=== PATIENT | male | born 1940 | race Caucasian/White ===

== ENCOUNTER 2016-08-06 07:21 | Day surgery (SDC) | payer MEDICARE ==
[2016-08-04 15:14] VITALS: BMI 29.9
[~2016-08-06 07:21] MED LIST: LACTATED RINGERS 1,000 ML IV SCH; LIDOCAINE 1% 20 ML VIAL (10MG/ML) FOR IV START INTRADERMA PRN
[2016-08-06 08:00] VITALS: RESP 16; TEMP 97
[2016-08-06 08:03] LABS: Glucose,Whole Blood 149 mg/dL (75-99)
[2016-08-06] MEDS ORDERED: PROPOFOL 10 MG/ML 20 ML VIAL IV ONE (08:24)
--- NOTE | 2016-08-06 08:43 | P.PCN ---
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 He presently complains of some dysphagia to solids and chest pain. PROCEDURE PERFORMED: Esophagogastroduodenoscopy with biopsy. PREOPERATIVE DIAGNOSIS: Follow-up of esophageal adenocarcinoma diagnosed in April 2016 status post chemo and radiation therapy 4 weeks ago. IV sedation per anesthesia. PROCEDURE: After informed consent was obtained, the patient was brought into the endoscopy unit. IV conscious sedation was administered by Anesthesia under continuous monitoring. Initially the Olympus GIF-140 video endoscope was inserted into the mouth. Esophagus intubated without any difficulty. It was gradually advanced into the distal esophagus where there was mild esophageal narrowing identified and evidence of esophagitis noted. At the GE junction which was located at 40 cm from the incisors there was a residual polypoid tissue identified and multiple biopsies were done from this area. The scope at this time was advanced into the stomach and duodenum and carefully examined. The bulb and the second part of the duodenum appeared normal. The scope at this time was withdrawn to the stomach, adequately insufflated with air, and upon careful examination, mucosa of the antrum, body, cardia and the fundus appeared normal. The scope was then withdrawn into the esophagus. The GE junction was located at 40 cm from the incisors. There was early distal esophageal stricture identified as mentioned above. The rest of the esophagus appeared normal and the patient tolerated the procedure well. IMPRESSION: 1. Residual 1 cm polypoid tissue noted at the GE junction status post biopsies to rule out neoplasm. 2. 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 RECOMMENDATIONS: The findings of this examination were discussed with the patient as well as his family. He was advised to follow with the biopsy results and he will be seen in the office early next week.
[2016-08-06 09:17] VITALS: BP 131/61; PULSE 56
== END 2016-08-06 09:43 | disposition home or self-care (01) ==
LOC: ORWHC2ENDO 07:21
PROVIDERS: ATTEND Internal Medicine Gastroenterology
DX: K22.2 Esophageal obstruction (principal); K22.8 Other specified diseases of esophagus; R13.10 Dysphagia, unspecified; K21.0 Gastro-esophageal reflux disease with esophagitis; I25.10 Atherosclerotic heart disease of native coronary artery without angina pectoris; I10 Essential (primary) hypertension; E78.5 Hyperlipidemia, unspecified; K21.9 Gastro-esophageal reflux disease without esophagitis; Z95.1 Presence of aortocoronary bypass graft; Z79.4 Long term (current) use of insulin; Z79.899 Other long term (current) drug therapy; Z79.82 Long term (current) use of aspirin; Z92.3 Personal history of irradiation; Z92.21 Personal history of antineoplastic chemotherapy; Z85.01 Personal history of malignant neoplasm of esophagus
CPT/HCPCS: 88305; 43239; J2704; 99153

== ENCOUNTER → 2016-10-04 | Outpatient (CLI) | payer MEDICARE ==
--- NOTE | 2016-10-05 10:38 | PE ---
EXAMINATION TYPE: PET CT fusion skull to thigh DATE OF EXAM: 10/04/2016 11:19 AM CLINICAL HISTORY: 76 year-old male restaging esophageal cancer, last chemotherapy June 2016 and ra diation therapy in July 2016. TECHNIQUE: Following the intravenous administration of 14.9 mCi of F-18 FDG, whole body images are performed from the skull base to the midthigh. Images are reviewed on the computer in the coronal, a xial, and sagittal planes. Reconstructed rotating images are created on independent workstation and reviewed on the computer. A localization and attenuation correction CT is performed in conjunction with the PET scan. Glucose level: 140 mg/dL COMPARISON: None. CDTI: 4.87 mGy DLP: 433.31 mGy/cm FINDINGS: PET: An 8 mm hypodense nodule right lower thyroid gland shows no discrete FDG uptake. Very mild residual uptake at the distal esophagus just above the GE junction, maximal SUV 2.7 versus 3.2, previously. Scattered variable [id number] small and large bowel uptake likely physiologic muscular activity . Nonspecific mild FDG uptake involving a few small right inguinal lymph nodes likely reactive/post inf lammatory. Otherwise, physiologic FDG uptake within the neck, chest, abdomen, and pelvis. ATTENUATION CORRECTION CT: Rightward nasal septal deviation. Visualized paranasal sinuses appear clear. Hearing aids are present on both sides. No cervical lymphadenopathy. Retropharyngeal course of the ICAs. Post-CABG changes are present. Heart is upper limits of normal in size. Borderline to mildly enlarge d caliber to the main right and left pulmonary arteries at 2.6 cm each, suggesting underlying pulmona ry arterial hypertension. Aorta is normal caliber with mild to moderate atherosclerotic calcification s throughout an conventional arch vessel branching anatomy. No thoracic lymphadenopathy. There is m oderate centrilobular emphysema in the upper to mid lungs without consolidation or pleural effusion. Some patchy bibasilar atelectasis is noted. No dilated small bowel, free fluid, or free air. Moderate scattered stool without pericolonic inflamm atory change. Moderate atherosclerotic calcifications continued throughout the abdominal aorta with mild fusiform aneurysm of the infrarenal abdominal aorta at 3.1 cm. No mesenteric or retroperitoneal lymphadenopathy. Sigmoid diverticulosis with a normal appendix. Redundant sigmoid colon. Bladder nondistended. No abnormal fluid collection in the pelvis. Bones: Mild degenerative changes at the hips. Additional degenerative changes at the SI joints and lo wer lumbar spine with endplate spondylosis lower thoracic spine. Cervical spondylosis. No osseous bety tructive process. IMPRESSION: 1. Very mild residual FDG uptake at the distal esophagus (maximal SUV 2.7 versus 3.2, previously). 2. No CT or metabolic evidence for metastatic disease. 3. COPD, pulmonary arterial hypertension, 3.1 cm AAA, and sigmoid diverticulosis.
== END | disposition home or self-care (01) ==
LOC: RADPETMAIN 07:17
PROVIDERS: ATTEND Internal Medicine Hematology & Oncology
DX: C15.5 Malignant neoplasm of lower third of esophagus (principal); R94.8 Abnormal results of function studies of other organs and systems; I27.2 Other secondary pulmonary hypertension; I71.4 Abdominal aortic aneurysm, without rupture; J44.9 Chronic obstructive pulmonary disease, unspecified; K57.30 Diverticulosis of large intestine without perforation or abscess without bleeding; E11.9 Type 2 diabetes mellitus without complications; Z79.4 Long term (current) use of insulin; Z92.21 Personal history of antineoplastic chemotherapy; Z92.3 Personal history of irradiation
CPT/HCPCS: 78815; A9552

== ENCOUNTER 2016-10-31 08:20 | Day surgery (SDC) | payer MEDICARE ==
[2016-10-30 10:19] VITALS: BMI 28.8
[2016-10-31 09:21] VITALS: TEMP 98
[2016-10-31] MEDS ORDERED: LACTATED RINGERS 1,000 ML IV ONE (09:21)
[2016-10-31 09:31] LABS: Glucose,Whole Blood 180 mg/dL (75-99)
[2016-10-31] MEDS ORDERED: LIDOCAINE 1% INJ 10MG/ML (20 ML MDV) ONE (09:47)
[2016-10-31] MEDS ORDERED: PROPOFOL 10 MG/ML 20 ML VIAL IV ONE (09:47)
[2016-10-31] MEDS ORDERED: GLYCOPYRROLATE 0.2 MG/ML 2 ML VIAL ONE (09:47)
--- NOTE | 2016-10-31 10:05 | P.PCN ---
Date of Procedure: 10/31/16 Procedure(s) Performed: BRIEF HISTORY: Patient is a 76-year-old, pleasant, white male, who was diagnosed with distal esophageal adenocarcinoma in April 2016 status post radiation and chemotherapy is scheduled for a follow-up upper endoscopy today. He did have an upper endoscopy in July 2069 and was noted to have small polypoid area at the GE junction and biopsies showed evidence of dysplasia. He scheduled for repeat upper endoscopy as a part of follow-up of esophageal cancer. PROCEDURE PERFORMED: Esophagogastroduodenoscopy with biopsy. PREOPERATIVE DIAGNOSIS: Follow-up distal esophageal adenocarcinoma diagnosed in May 2016. IV sedation per anesthesia. PROCEDURE: After informed consent was obtained, the patient was brought into the endoscopy unit. IV sedation was administered by Anesthesia under continuous monitoring. Initially the Olympus GIF-140 video endoscope was inserted into the mouth. Esophagus intubated without any difficulty. It was gradually advanced into the stomach and duodenum and carefully examined. The bulb and the second part of the duodenum appeared normal. The scope at this time was withdrawn to the stomach, adequately insufflated with air, and upon careful examination, mucosa of the antrum, body, cardia and the fundus appeared normal. The scope was then withdrawn into the esophagus. Small hiatal hernia noted. The GE junction was located at 40 cm from the incisors. The mucosa in the GE junction appeared slightly friable and thickened but no obvious mass identified. Multiple biopsies were done from this friable mucosa which was noted at the GE junction. The entire length of esophagus appeared normal. There were no erosions or ulcerations seen and the patient tolerated the procedure well. IMPRESSION: 1. Mucosal thickening at the GE junction with no obvious mass status post multiple biopsies to rule out residual neoplasm. 2. Normal-appearing esophagus with no esophageal stricture or esophageal. RECOMMENDATIONS: The findings of this examination were discussed with the patient as well as his family. He was advised to follow with the biopsy results and follow with Dr Conrad Nelson as scheduled.
[2016-10-31 10:28] VITALS: PULSE 82; RESP 16
[2016-10-31 10:29] VITALS: BP 119/63
== END 2016-10-31 11:02 | disposition home or self-care (01) ==
LOC: ORWHC2ENDO 08:20
PROVIDERS: ATTEND Internal Medicine Gastroenterology
DX: C16.0 Malignant neoplasm of cardia (principal); Z85.01 Personal history of malignant neoplasm of esophagus; Z92.3 Personal history of irradiation; Z92.21 Personal history of antineoplastic chemotherapy; K44.9 Diaphragmatic hernia without obstruction or gangrene; K21.9 Gastro-esophageal reflux disease without esophagitis; I25.10 Atherosclerotic heart disease of native coronary artery without angina pectoris; I10 Essential (primary) hypertension; E78.5 Hyperlipidemia, unspecified; E11.9 Type 2 diabetes mellitus without complications; I25.2 Old myocardial infarction; Z95.1 Presence of aortocoronary bypass graft; Z79.82 Long term (current) use of aspirin; Z79.4 Long term (current) use of insulin; Z79.899 Other long term (current) drug therapy; Z87.891 Personal history of nicotine dependence
CPT/HCPCS: 88305; 43239; J2001; J2704

== ENCOUNTER → 2016-11-15 | Outpatient (CLI) | payer MEDICARE ==
--- NOTE | 2016-11-17 18:03 | PE ---
EXAMINATION TYPE: PET CT fusion skull to thigh DATE OF EXAM: 11/15/2016 2:51 PM CLINICAL HISTORY: 76 year-old male history of esophageal cancer, restaging. Patient with last chemoth erapy on June 2016 and radiation therapy as well. TECHNIQUE: Following the intravenous administration of 14.01 mCi of F-18 FDG, whole body images are performed from the skull base to the midthigh. Images are reviewed on the computer in the coronal, axial, and sagittal planes. Reconstructed rotating images are created on independent workstation and reviewed on the computer. A localization and attenuation correction CT is performed in conjunction with the PET scan. Glucose level: 167 mg/dL CTDI- 4.96 mGy DLP- 441.15 mGy/cm COMPARISON: 10/04/2016 FINDINGS: PET: Stable 9 mm ametabolic hypodense nodule right lobe of the thyroid gland. There is physiologic FDG upt jerri within the neck. There is a tiny focus of mild uptake in the distal esophagus above the GE junction, maximal SUV 3.7 v ersus 2.7, previously. Variable segmental bowel uptake likely physiologic. Otherwise, physiologic FDG uptake within the ches t, abdomen, and pelvis. ATTENUATION CORRECTION CT: Visualized paranasal sinuses and mastoid air cells are clear. No cervical lymphadenopathy. Median sternotomy wires are present with post-CABG changes. The heart remains upper limits of normal in size without pericardial effusion. Upper descending thoracic aorta overlying aneurysmal and 3 cm. Are likely mildly enlarged caliber to the main right and left pulmonary arteries are 2.5 and 2.6 cm, respectively, suggests underlying pulmonary arterial hypertension. No thoracic lymphadenopathy. Pat tanisha atelectasis in the lower lungs. Mild emphysema and mild diffuse bronchial wall thickening compati ble with COPD. No dilated small bowel, free fluid, or free air. No mesenteric or retroperitoneal lymphadenopathy. Mo derate nonspecific calcifications within the abdominal aorta and iliac arteries with redemonstrated a bdominal aortic aneurysm. This measures 3.2 cm, not significantly changed. Mild aneurysm extends into the proximal left common iliac artery which is ectatic at 1.9 cm, also unchanged. The right common i liac artery becomes ectatic as well at 1.7 cm. Sigmoid diverticulosis without acute diverticulitis. No abnormal fluid collection in the pelvis or lymphadenopathy. Bladder is nondistended. Bones: Mild degenerative changes at the hips. Additional degenerative changes at the SI joints and mi d to lower lumbar spine. Plate spondylosis lower thoracic spine. Cervical spondylosis. No osseous bety tructive process seen. IMPRESSION: 1. Small focus of mild FDG uptake at the distal esophagus (maximal SUV 3.7 versus 2.7, previously). F ollow-up can be considered. 2. No evidence for metastatic disease. 3. Incidental findings (COPD, suspected pulmonary arterial hypertension, sigmoid diverticulosis, AAA (3.2 cm), and ectatic common iliac arteries).
== END | disposition home or self-care (01) ==
LOC: RADPETMAIN 08:28
PROVIDERS: ATTEND Internal Medicine Hematology & Oncology
DX: C15.9 Malignant neoplasm of esophagus, unspecified (principal)
CPT/HCPCS: 78815; A9552

== ENCOUNTER → 2016-11-18 | Outpatient (CLI) | payer MEDICARE ==
--- NOTE | 2016-11-19 07:16 | XR ---
EXAMINATION TYPE: XR shoulder complete BILAT DATE OF EXAM: 11/18/2016 1:10 PM COMPARISON: NONE HISTORY: Pain TECHNIQUE: Three views are submitted. FINDINGS: The osseous structures are intact. There is no acute fracture or dislocation. The AC joint is maint ained. Diffuse osteopenia and arthropathy of the shoulder noted. IMPRESSION: 1. Shoulder arthropathy. Correlate for chronic rotator cuff disease. Consider MRI.
--- NOTE | 2016-11-19 07:19 | XR ---
EXAMINATION TYPE: XR Hip Bilateral Complete DATE OF EXAM: 11/18/2016 1:10 PM COMPARISON: NONE HISTORY: Pain TECHNIQUE: 2 views submitted FINDINGS: There is no evidence of erosive change or acute fracture. Diffuse osteopenia and narrowing of the joint space is seen. Vascular calcifications noted. IMPRESSION: 1. Arthropathy of the hip.
== END ==
LOC: RADXRYALE 11:49
PROVIDERS: ATTEND Internal Medicine
DX: M19.011 Primary osteoarthritis, right shoulder (principal); M19.012 Primary osteoarthritis, left shoulder; M16.0 Bilateral primary osteoarthritis of hip
CPT/HCPCS: 73521

== ENCOUNTER → 2018-01-04 | Outpatient (CLI) | payer MEDICARE ==
--- NOTE | 2018-01-04 12:52 | CT ---
EXAMINATION TYPE: CT ChestAbdPelvis w con DATE OF EXAM: 01/04/2018 COMPARISON: 04/23/2017 HISTORY: 77-year-old male follow-up Esophageal CA TECHNIQUE: Contiguous axial scanning of the chest, abdomen, and pelvis performed with IV Contrast, pa tient injected with 100 mL of Isovue 300. Delayed images through the kidneys were obtained. Coronal/s agittal reconstructions performed. CT DLP: 1960.9 mGycm Automated exposure control for dose reduction was used. FINDINGS: Chest: Median sternotomy wires are present with post-CABG changes. Heart normal size without pericardial effusion. There are normal caliber with mild to moderate arthroscopic cartilage calcifications and bovine confi guration to the aortic arch. Borderline to mildly enlarged caliber to the main right and left pulmonary arteries and 2.5 and 2.6 c m, respectively, suggesting underlying pulmonary arterial hypertension. Scattered nonenlarged mediastinal lymph nodes are unchanged. There are postsurgical changes of esophagectomy and gastric pull-through. Stable strandy scarring at the lung bases with mild to moderate centrilobular emphysema in the upper midlungs. No consolidation or pleural effusion. ABDOMEN: Artifact from the patient's arms down by his side. No focal liver lesion seen. No biliary ductal dila tation. Portal venous system appears patent on the delayed kidney images. Gallbladder, adrenal glands, kidneys, spleen, and atrophic pancreas show no gross abnormal body. Diverticulum of the third portion of the duodenum projecting superiorly, unchanged. No dilated small bowel, free fluid, or free air. Moderate apical scarring calcifications within the abdominal aorta and iliac arteries with a AAA megan uring 3.3 cm. No mesenteric or retroperitoneal lymphadenopathy. Mild stool burden. Normal appendix. No pericolonic inflammatory change. There is mid to distal sigmoi d diverticulosis. Ectasia of the right common iliac artery at 1.6 cm. Bladder urine distended. Central prostatic calcif ications. No abnormal fluid collection in the pelvis or pelvic lymphadenopathy. Pelvic phleboliths. Bones: Degenerative changes of the hips and degenerative bridging ankylosis at the SI joints. Osteopenia wit h multilevel degenerative disc disease and facet arthropathy throughout the spine. No osseous destruc tive process seen. IMPRESSION: 1. STABLE POSTSURGICAL CHANGES OF ESOPHAGECTOMY AND GASTRIC PULL-THROUGH. NO EVIDENCE FOR METASTATIC DISEASE. 2. COPD WITH MILD TO MODERATE EMPHYSEMA, POSSIBLE PULMONARY ARTERIAL HYPERTENSION, 3.3 CM AAA, AND SI GMOID DIVERTICULOSIS.
== END | disposition home or self-care (01) ==
LOC: RADCTMAIN 11:12
PROVIDERS: ATTEND Radiology Radiation Oncology
DX: C15.5 Malignant neoplasm of lower third of esophagus (principal); J43.9 Emphysema, unspecified; Z98.890 Other specified postprocedural states; Z90.49 Acquired absence of other specified parts of digestive tract
CPT/HCPCS: 82565; 84520; 71260; 74177; 36415; Q9967

== ENCOUNTER 2018-12-01 08:45 | Day surgery (SDC) | payer MEDICARE ==
[2018-11-29 15:33] VITALS: BMI 27.1
[~2018-12-01 08:45] MED LIST changes: -LIDOCAINE 1% 20 ML VIAL (10MG/ML) FOR IV START INTRADERMA PRN
[2018-12-01 09:47] VITALS: TEMP 97
[2018-12-01] MEDS ORDERED: LIDOCAINE 1% 20 ML VIAL (10MG/ML) FOR IV START INTRADERMA ONE (10:00)
[2018-12-01] MEDS ORDERED: LIDOCAINE 1% INJ 10MG/ML (20 ML MDV) ONE (10:07)
[2018-12-01] MEDS ORDERED: PROPOFOL 10 MG/ML 20 ML VIAL IV ONE (10:07)
[2018-12-01 10:08] LABS: Glucose,Whole Blood 123 mg/dL (75-99)
--- NOTE | 2018-12-01 10:27 | P.PCN ---
Date of Procedure: 12/01/18 Procedure(s) Performed: BRIEF HISTORY: Patient is a 78-year-old, pleasant, white male, scheduled for an upper endoscopy as a part of evaluation of progressive dysphagia to solids for the last few weeks duration. He was diagnosed with family cancer in April 2016 and subsequently underwent chemoradiation. He developed recurrent in October 2016 and underwent distal esophagectomy at [facility] in December 2016. He is been complaint of dysphagia for the last 2 months duration. He is hence scheduled for an upper endoscopy with possible dilation. PROCEDURE PERFORMED: Esophagogastroduodenoscopy with dilation. PREOPERATIVE DIAGNOSIS: Progressive dysphagia to solids a few months duration/history of esophageal cancer. IV sedation per anesthesia. PROCEDURE: After informed consent was obtained, the patient was brought into the endoscopy unit. IV sedation was administered by Anesthesia under continuous monitoring. Initially the Olympus GIF-140 video endoscope was inserted into the mouth. Esophagus intubated without any difficulty. It was gradually advanced into the proximal esophagus. There was a tight stricture identified which appeared radiation-induced. I was not able as the scope through the stricture. At this time the suture was dilated using 10-12 mm TTS balloon in a sequential fashion for 90 seconds. Findings with gentle pressure I was able to advance the scope into the stomach and duodenum and carefully examined. The bulb and the second part of the duodenum appeared normal. The scope at this time was withdrawn to the stomach, adequately insufflated with air, and upon careful examination, mucosa of the antrum, body, appeared normal. There was evidence of gastric pull-through surgery noted. The scope was then withdrawn into the esophagus. The GE anastomosis was located at 25 cm from the incisors. Once again there was a tight tight proximal esophageal stricture seen at 20 cm of the incisors that was dilated. The possible esophagus appeared normal and the patient tolerated the procedure well. IMPRESSION: 1. Tight proximal to the stricture at 20 cm from the incisors possibly radiation-induced, status post balloon dilation using 10-12 mm TTS balloon as described above. 2. Normal anastomosis at 23 cm from the incisors with no recurrence of malignancy. RECOMMENDATIONS: The findings of this examination were discussed with the patient as well as his family. She was advised to follow up in office in one month.
[2018-12-01 10:35] VITALS: RESP 16
[2018-12-01 10:48] VITALS: BP 113/65; PULSE 55
[2018-12-01 10:52] LABS: Glucose,Whole Blood 114 mg/dL (75-99)
== END 2018-12-01 11:15 | disposition home or self-care (01) ==
LOC: ORWHC2ENDO 08:45
PROVIDERS: ATTEND Internal Medicine Gastroenterology
DX: K22.2 Esophageal obstruction (principal); Z85.01 Personal history of malignant neoplasm of esophagus; W88.1XXA Exposure to radioactive isotopes, initial encounter; I25.10 Atherosclerotic heart disease of native coronary artery without angina pectoris; I10 Essential (primary) hypertension; E78.5 Hyperlipidemia, unspecified; J44.9 Chronic obstructive pulmonary disease, unspecified; G62.9 Polyneuropathy, unspecified; Z95.1 Presence of aortocoronary bypass graft; K21.9 Gastro-esophageal reflux disease without esophagitis; Z79.899 Other long term (current) drug therapy
CPT/HCPCS: 43249; J2001; J2704

== ENCOUNTER → 2018-12-15 | Outpatient (CLI) | payer MEDICARE ==
--- NOTE | 2018-12-15 12:46 | CT ---
EXAMINATION TYPE: CT ChestAbdPelvis w con DATE OF EXAM: 12/15/2018 COMPARISON: 01/04/2018 and 04/23/2017 HISTORY: 78-year-old male Follow up to esophageal CA TECHNIQUE: Contiguous axial scanning of the chest, abdomen, and pelvis performed with IV Contrast, pa tient injected with 80 mL of Isovue 300. Delayed images through the kidneys were obtained. Coronal/sa gittal reconstructions performed. CT DLP: 1675 mGycm Automated exposure control for dose reduction was used. FINDINGS: The technologist notes that the patient refused to bring arms above the head. CHEST: Heart normal size without pericardial effusion. Median sternotomy wires and post-CABG changes. Aorta normal caliber with [id number] atherosclerotic calcifications and bovine configuration to the aortic arch. No thoracic lymphadenopathy. Postsurgical changes of esophagectomy and gastric pull-through. However, in the upper thorax at the l evel of the proximal anastomosis, there is new abnormal soft tissue thickening measured 2.9 x 2.0 cm along the anterior aspect of the anastomosis. This abuts the posterior wall of the trachea wrapping a round slightly towards the left, refer to axial image 12 through 14. Scattered faint nodularity is present measuring 2 to 3 mm, refer to axial image 20, 23, 25. However, larger 6 mm and 7 mm right basilar pulmonary nodules, axial images 40 also new. No consolidation or pleural effusion. ABDOMEN: No focal liver lesion or biliary ductal dilatation. Portal venous system appears patent. Gallbladder, adrenal glands, kidneys, spleen, atrophic pancreas appear within normal limits. Diverticulum of the third portion of the duodenum projecting upward to the uncinate process region. No dilated small bowel, free fluid, or free air. A prominent but nonenlarged 9 mm upper abdominal lymph node is new. This is indeterminate at this lee e and should be reassessed at follow-up. No other mesenteric or retroperitoneal lymphadenopathy seen. Moderate prostatic calcifications abdominal aorta and iliac arteries with 3.4 cm AAA, relatively unch anged. Normal appendix. Mild overall stool burden. Sigmoid diverticulosis. No pericolonic inflammatory brown e. PELVIS: Bladder nondistended. Prostate gland with central calcifications and measuring 3.9 cm wide. No abnorm al fluid collection in the pelvis or pelvic lymphadenopathy. BONES: Mild degenerative changes at the hips and SI joints. Degenerative changes throughout the spine. No ob vious osseous destructive process seen. IMPRESSION: 1. FINDINGS HIGHLY CONCERNING FOR RECURRENT DISEASE ALONG THE ANTERIOR MARGIN OF THE ANASTOMOSIS WITH IN THE UPPER THORAX. NEW SOFT TISSUE HERE MEASURES 2.9 X 2.0 CM EXTENDING TO ABUT THE POSTERIOR WALL OF THE TRACHEA WRAPPING AROUND SLIGHTLY TOWARDS THE LEFT. 2. A FEW SCATTERED NEW RIGHT-SIDED PULMONARY NODULES, LARGEST MEASURING 7 MM. DIFFICULT TO EXCLUDE ME TASTATIC DISEASE AT THIS TIME. 3. A PROMINENT BUT NONENLARGED 9 MM UPPER ABDOMINAL LYMPH NODE IS NEW. ATTENTION ON FOLLOW-UP. 4. STABLE AAA AT 3.4 CM AND SIGMOID DIVERTICULOSIS.
== END | disposition home or self-care (01) ==
LOC: RADCTMAIN 09:27
PROVIDERS: ATTEND Internal Medicine Hematology & Oncology
DX: K63.89 Other specified diseases of intestine (principal); R91.1 Solitary pulmonary nodule; M79.89 Other specified soft tissue disorders; K57.30 Diverticulosis of large intestine without perforation or abscess without bleeding; Z03.89 Encounter for observation for other suspected diseases and conditions ruled out
CPT/HCPCS: 82565; 84520; 71260; 74177; 36415; Q9967

== ENCOUNTER 2019-01-28 07:15 | Day surgery (SDC) | payer MEDICARE, OTHER ==
[2019-01-25 13:36] VITALS: BMI 27.1
[2019-01-28] MEDS ORDERED: LIDOCAINE 1% 20 ML VIAL (10MG/ML) FOR IV START INTRADERMA ONE (07:40)
[2019-01-28 07:51] VITALS: RESP 16; TEMP 98.4
[2019-01-28 07:56] LABS: Glucose,Whole Blood 135 mg/dL (75-99)
[2019-01-28] MEDS ORDERED: LIDOCAINE 1% INJ 10MG/ML (20 ML MDV) ONE (08:15)
[2019-01-28] MEDS ORDERED: PROPOFOL 10 MG/ML 20 ML VIAL IV ONE (08:15)
--- NOTE | 2019-01-28 08:33 | P.PCN ---
Date of Procedure: 01/28/19 Procedure(s) Performed: BRIEF HISTORY: Patient is a 78-year-old, pleasant, white male, scheduled for an upper endoscopy for evaluate of was in dysphagia. He was diagnosed with esophageal cancer in April 2016 and subsequently underwent chemoradiation. He developed recurrent disease and hence he underwent distal esophagectomy at [facility] in December 2069. Last upper endoscopy was done in November 2018 which revealed a tight proximal cervical esophageal stricture that was dilated using 10-12 mm TTS balloon. He continues remains symptomatic. His and scheduled for repeat upper endoscopy with dilation today. PROCEDURE PERFORMED: Esophagoscopy with dilation. PREOPERATIVE DIAGNOSIS: Tight proximal cervical radiation-induced esophageal stricture. IV sedation per anesthesia. PROCEDURE: After informed consent was obtained, the patient was brought into the endoscopy unit. IV sedation was administered by Anesthesia under continuous monitoring. Initially the Olympus GIF-140 video endoscope was inserted into the mouth. Esophagus intubated without any difficulty. It was gradually advanced into the proximal esophagus at 20 cm from the incisors there was a tight stricture identified. Scope could not be advanced. At this time I proceeded with balloon dilation using 8-10 mm TTS balloon for 90 seconds. No adequate dilation was accomplished. I proceeded with 10-12 mm balloon dilation in a sequential fashion for 90 seconds. At this time there was some oozing identified. Hence further dilation was not performed. Despite this I was not able to advance the scope into the stomach. The procedure was terminated and the patient tolerated the procedure well. IMPRESSION: 1. Tight proximal cervical esophageal anastomotic stricture status post balloon dilation using 10-12 mm TTS balloon as described above. 2. Scope could not be advanced through the stricture into the stomach. RECOMMENDATIONS: The findings of this examination were discussed with the patient as well as his family. He will remain on a clear liquid diet today. He'll be seen in the office in 6 weeks..
[2019-01-28 09:07] VITALS: BP 148/76; PULSE 65
== END 2019-01-28 09:30 | disposition home or self-care (01) ==
LOC: ORWHC2ENDO 07:15
PROVIDERS: ATTEND Internal Medicine Gastroenterology
DX: K22.2 Esophageal obstruction (principal); Y84.2 Radiological procedure and radiotherapy as the cause of abnormal reaction of the patient, or of later complication, without mention of misadventure at the time of the procedure; Z85.01 Personal history of malignant neoplasm of esophagus; E11.9 Type 2 diabetes mellitus without complications; I10 Essential (primary) hypertension; I25.2 Old myocardial infarction; Z87.891 Personal history of nicotine dependence; E78.5 Hyperlipidemia, unspecified; H91.90 Unspecified hearing loss, unspecified ear; Z97.4 Presence of external hearing-aid; K21.9 Gastro-esophageal reflux disease without esophagitis; Z95.1 Presence of aortocoronary bypass graft; Z79.4 Long term (current) use of insulin; Z79.899 Other long term (current) drug therapy; Z79.82 Long term (current) use of aspirin
CPT/HCPCS: 43249; J2001; J2704; C1726 ×2